=== PATIENT | female | born 1995 | race Two or more races ===

== ENCOUNTER 2017-08-30 16:23 | Emergency (ER) | payer MEDICAID ==
[~2017-08-30] VITALS: Ht 157.5 cm; Wt 54.4 kg
--- NOTE | 2017-08-30 16:30 | NUR ---
PT GENEVIEVE FROM THE STREETS TO ER BED 09. HERE FOR NAUSEA AND VOMITING. ADMITS TO MARIJUANA AND METH USE. DENIES CHEST PAIN. NAD NOTED. AWAITING MD SURESH.
--- NOTE | 2017-08-30 17:01 | NUR ---
LAURA LAO AT BEDSIDE FOR EVAL.
--- NOTE | 2017-08-30 17:10 | NUR ---
PT STATES UNABLE TO PROVIDE URINE SAMPLE AT THIS TIME.
[2017-08-30] MEDS ORDERED: ONDANSETRON HCL/PF 4 MG/2 ML VIAL IVP ONE (17:30)
[2017-08-30] MEDS ORDERED: KETOROLAC TROMETHAMINE INJ 30 MG/ML VIAL IV ONE (17:30)
[2017-08-30] MEDS ORDERED: IV NS 0.9% 1,000 ML BAG IV ONE (17:30)
[2017-08-30] MEDS ORDERED: KETOROLAC TROMETHAMINE INJ 30 MG/ML VIAL ONE (17:53)
[2017-08-30] MEDS ORDERED: ONDANSETRON HCL/PF 4 MG/2 ML VIAL ONE (17:54)
--- NOTE | 2017-08-30 18:05 | NUR ---
PT STILL WONT PROVIDE URINE SAMPLE. STATES NOT . LAURA LAO AWARE.
--- NOTE | 2017-08-30 20:40 | NUR ---
PT IS AWAKE. AAOX3. DENIES NAUSEA AT THIS TIME. IVHL D/C'D. DISCHARGE IN STABLE CONDITION.
[2017-08-30 20:41] VITALS: BP 115/60
== END 2017-08-30 20:43 | disposition home or self-care (01) ==
LOC: ER 16:24
DX: E86.0 Dehydration (principal); N61.0 Mastitis without abscess; R11.2 Nausea with vomiting, unspecified; F15.10 Other stimulant abuse, uncomplicated; F12.10 Cannabis abuse, uncomplicated
CPT/HCPCS: 96374; 96375; 99284; A4606; J1885; J2405; J7030; Z7610

== ENCOUNTER 2017-10-09 07:44 | Emergency (ER) | payer OTHER ==
[~2017-10-09] VITALS: Ht 162.6 cm; Wt 59.0 kg
[2017-10-09 07:46] VITALS: BP 126/69
== END 2017-10-09 08:02 | disposition home or self-care (01) ==
LOC: ER 07:46
DX: J06.9 Acute upper respiratory infection, unspecified (principal); F17.200 Nicotine dependence, unspecified, uncomplicated; F12.10 Cannabis abuse, uncomplicated
CPT/HCPCS: 99281; A4606; Z7610; Z7502

== ENCOUNTER 2023-03-17 00:41 | Emergency (ER) | payer MEDICAID, OTHER ==
[~2023-03-17] VITALS: Ht 162.6 cm; Wt 63.5 kg
[2023-03-17 00:44] VITALS: BP 107/84; TEMP 98.4; O2SAT 98
[2023-03-17] MEDS ORDERED: LORATADINE 10 MG TABLET PO SCH (01:00)
[2023-03-17] MEDS ORDERED: ONDANSETRON 4 MG TAB.RAPDIS SL ONE (01:00)
[2023-03-17] MEDS ORDERED: ONDANSETRON 4 MG TAB.RAPDIS ONE (01:00)
[2023-03-17] MEDS ORDERED: LORATADINE 10 MG TABLET ONE (01:00)
== END 2023-03-17 01:17 | disposition home or self-care (01) ==
LOC: ER 00:53
DX: R09.81 Nasal congestion (principal); R11.0 Nausea; Z60.2 Problems related to living alone
CPT/HCPCS: 99283; Q0162

== ENCOUNTER 2025-07-01 20:47 | Emergency (ER) | payer MEDICAID, OTHER ==
[~2025-07-01] VITALS: Ht 162.6 cm; Wt 68.0 kg
[2025-07-01] MEDS ORDERED: LORAZEPAM INJ 2 MG/ML VIAL ONE (20:57)
[2025-07-01] MEDS ORDERED: HALOPERIDOL LACTATE INJ 5 MG/ML VIAL ONE (20:57)
[2025-07-01] MEDS: HALOPERIDOL LACTATE INJ 5 MG/ML VIAL IM ONE (21:03)
[2025-07-01] MEDS: LORAZEPAM INJ 2 MG/ML VIAL IM ONE (21:03)
[2025-07-01 21:21] LABS: PLATELET COUNT (AUTO) 192 K/uL (150-450); RED BLOOD CELL COUNT(AUTO) 4.74 MIL/uL (4.0-5.2); RED CELL DISTRIBUTION WIDTH 13.7 % (11.5-15.0); WHITE BLOOD COUNT (AUTO) 13.9 K/uL (4.3-11.0)
[2025-07-01 21:34] LABS: ALCOHOL, BLOOD 65.0 mg/dL (0-10); ASPARTATE AMINOTRANSFERASE 20.0 U/L (15-37); CALCIUM, SERUM 8.6 mg/dL (8.5-10.1); CREATININE 0.7 mg/dL (0.6-1.3); SODIUM SERUM 137.0 mmol/L (136-145); TOTAL PROTEIN, SERUM 7.7 g/dL (6.4-8.2); UREA NITROGEN, BLOOD 8.0 mg/dL (7-18)
[2025-07-01 21:42] LABS: APPEARANCE,URINE CLEAR (CLEAR); BLOOD, URINE NEGATIVE Ery/uL (NEGATIVE); LEUKOCYTE ESTERASE ,URINE 2+ (NEGATIVE); NITRITE, URINE NEGATIVE (NEGATIVE); UGLUCOSE NEGATIVE (NEGATIVE)
[2025-07-01 21:45] LABS: PREGNANCY TEST URINE QUAL NEGATIVE (NEGATIVE)
[2025-07-01 21:59] LABS: ADD URINE CULTURE YES; SQUAMOUS EPITHELIAL CELL,UR Moderate /HPF (None Seen)
[2025-07-01 22:02] LABS: AMPHETAMINE, URINE NEGATIVE (NEGATIVE); BARBITURATE, URINE NEGATIVE (NEGATIVE); BENZODIAZEPINE, URINE NEGATIVE (NEGATIVE); COCCAINE, URINE NEGATIVE (NEGATIVE); OPIATE, URINE NEGATIVE (NEGATIVE)
[2025-07-01 22:07] LABS: CANNABINOID, URINE POSITIVE (NEGATIVE)
[2025-07-02 06:00] VITALS: BP 131/71; TEMP 98.1; O2SAT 98
== END 2025-07-02 06:01 | disposition home or self-care (01) ==
LOC: ER 20:48
DX: F12.90 Cannabis use, unspecified, uncomplicated (principal); R10.20 Pelvic and perineal pain unspecified side; Z60.2 Problems related to living alone; Z79.899 Other long term (current) drug therapy; Z20.822 Contact with and (suspected) exposure to COVID-19
CPT/HCPCS: 99284; 96372; 85025; 80048; 80076; 84703; 81001; 36415; 84702; 87426; 80143; 80320; 80307; J2060; J1200; J1630; 87086-TC; G0480